=== PATIENT | male | born 1955 | race Caucasian/White ===

== ENCOUNTER 2016-10-16 09:20 | Emergency (ER) | payer OTHER ==
--- NOTE | 2016-10-16 10:04 | UC ---
Skin Complaint HPI - HPI Summary HPI Summary: 61 yo male removed a nymph sized tick form right hand this am unsure how long it was on - History of Current Complaint Chief Complaint: UCSkin Time Seen by Provider: 10/16/16 09:38 Stated Complaint: TICK BITE Hx Obtained From: Patient Onset Severity: Mild Current Severity: None Pain Intensity: 0 Pain Scale Used: 0-10 Numeric Location: Hand (Right) Associated Signs & Symptoms: Positive: Nausea - Allergy/Home Medications Allergies/Adverse Reactions: Allergies Allergy/AdvReac Type Severity Reaction Status Date / Time No Known Allergies Allergy Verified 10/16/16 09:35 Home Medications: Home Medications Cyclosporine 0.05% OPHTH (NF) [Restasis 0.05% OPHTH] 1 drop BOTH EYES 10/16/16 [ History] Review of Systems Constitutional: Negative Skin: Negative Eyes: Negative ENT: Negative Respiratory: Negative Cardiovascular: Negative Gastrointestinal: Negative Genitourinary: Negative Motor: Negative Neurovascular: Negative Musculoskeletal: Negative Neurological: Negative Psychological: Negative All Other Systems Reviewed And Are Negative: Yes PMH/Surg Hx/FS Hx/Imm Hx Previously Healthy: Yes - Surgical History Surgical History: None - Social History Alcohol Use: None Substance Use Type: None Smoking Status (MU): Never Smoked Tobacco Physical Exam Triage Information Reviewed: Yes Appearance: Well-Appearing, No Pain Distress, Well-Nourished Vital Signs: Initial Vital Signs Temp 97.5 F 10/16/16 09:30 Pulse 66 10/16/16 09:30 Resp 18 10/16/16 09:30 BP 116/45 10/16/16 09:30 Pulse Ox 100 10/16/16 09:30 ENT: Positive: Hearing grossly normal. Negative: Nasal drainage Neck: Positive: Supple, Nontender Respiratory: Positive: Lungs clear, Normal breath sounds, No respiratory distress Cardiovascular: Positive: RRR, No Murmur Musculoskeletal: Positive: ROM Intact, No Edema Neurological: Positive: Alert Psychological Exam: Normal Skin Exam: Normal Course/Dx - Diagnoses Provider Diagnoses: tick bite. lyme disease prophylaxis Discharge - Discharge Plan Condition: Stable Disposition: HOME Prescriptions: DOXYcycline CAP(*) [DOXYcycline 100MG CAP(*)] 200 mg PO BID #2 cap Patient Education Materials: Tick Bite (ED) Additional Instructions: you have been prescribed a prophylactic dose of doxy this will protect you for this tick bite only recheck with your provider in 2-3 weeks
[2016-10-16 10:05] VITALS: BP 116/45
== END 2016-10-16 09:56 | disposition home or self-care (01) ==
LOC: UCEAST 09:20
DX: S60.561A Insect bite (nonvenomous) of right hand, initial encounter (principal); W57.XXXA Bitten or stung by nonvenomous insect and other nonvenomous arthropods, initial encounter
CPT/HCPCS: 99202; G0463

== ENCOUNTER 2016-12-28 12:16 | Emergency (ER) | payer SELFPAY ==
[2016-12-28 12:23] VITALS: BP 115/71
[2016-12-28] MEDS ORDERED: Ketorolac INJ* 30 MG/ML 1 ML VIAL IM ONE (12:43)
[2016-12-28] MEDS ORDERED: Ondansetron ODT TAB* 4 MG PO ONE (12:43)
--- NOTE | 2016-12-28 12:49 | UC ---
Back Pain HPI - HPI Summary HPI Summary: 61 yo male awoke about 2 AM with right back and flank pain associated with n/v and diaphoresis Hx Kidney stones - History of Current Complaint Chief Complaint: UCGU Stated Complaint: LOWER BACK PAIN NAUSEA Time Seen by Provider: 12/28/16 12:39 Hx Obtained From: Patient Onset/Duration: Sudden Onset Timing: Constant Severity Initially: Severe Severity Currently: Severe Pain Intensity: 8 Pain Scale Used: 0-10 Numeric Back Pain: Is Discrete @ - right CVA, Radiates To - right flank Character: Aching, Spasmodic Aggravating: Nothing Alleviating: Nothing - last to 400mg motrin at 8AM Associated Signs And Symptoms: Positive: Flank Pain Related History: Similar Episode Dx As - kidney stone - Allergies/Home Medications Allergies/Adverse Reactions: Allergies Allergy/AdvReac Type Severity Reaction Status Date / Time No Known Allergies Allergy Verified 12/28/16 12:23 PMH/Surg Hx/FS Hx/Imm Hx Previously Healthy: Yes GI/ History: Kidney Stones - Surgical History Surgical History: None - Family History Known Family History: Positive: Hypertension - Social History Alcohol Use: None Substance Use Type: None Smoking Status (MU): Never Smoked Tobacco Review of Systems Constitutional: Negative Skin: Negative Eyes: Negative ENT: Negative Respiratory: Negative Cardiovascular: Negative Gastrointestinal: Vomiting, Nausea, Other - right flank pain Genitourinary: Negative Motor: Negative Neurovascular: Negative Musculoskeletal: Negative Neurological: Negative Psychological: Negative Is Patient Immunocompromised?: No All Other Systems Reviewed And Are Negative: Yes Physical Exam Triage Information Reviewed: Yes Appearance: Well-Appearing, No Pain Distress, Well-Nourished Vital Signs: Initial Vital Signs Temp 97.5 F 12/28/16 12:17 Pulse 58 12/28/16 12:17 Resp 18 12/28/16 12:17 BP 115/71 12/28/16 12:17 Pulse Ox 100 12/28/16 12:17 Vital Signs Reviewed: Yes Eyes: Positive: Conjunctiva Clear ENT: Positive: Hearing grossly normal, TMs normal. Negative: Nasal congestion, Nasal drainage, Trismus, Muffled/hoarse voice Neck: Positive: Supple, Nontender Respiratory: Positive: Lungs clear, Normal breath sounds, No respiratory distress Cardiovascular: Positive: RRR, No Murmur Abdomen Description: Positive: Nontender, No Organomegaly, Soft, CVA Tenderness (R). Negative: Bruit Bowel Sounds: Positive: Present Musculoskeletal: Positive: ROM Intact, No Edema Neurological: Positive: Alert Psychological Exam: Normal Skin Exam: Normal Diagnostics - Radiology No standard instances Xray Interpretation: Positive (See Comments) Radiology Interpretation Completed By: Radiologist Back Pain Course/Dx - Differential Dx/Diagnosis Provider Diagnoses: kidstone right UVJ Discharge - Discharge Plan Condition: Improved Disposition: HOME Prescriptions: HYDROcodone/ACETAMIN 5-325 MG* [[place] 5-325 TAB*] 1 tab PO Q4H PRN #15 tab MDD 6 PRN Reason: Pain Ondansetron ODT TAB* [Zofran 4 MG Odt TAB*] 4 mg PO Q6H PRN #12 tab.odt MDD 4 PRN Reason: Nausea Ondansetron TAB* [Zofran Tab*] 4 mg PO Q6H PRN #10 tab PRN Reason: Nausea Tamsulosin CAP* [Flomax CAP*] 0.4 mg PO BEDTIME #7 cap Patient Education Materials: Kidney Stones (ED) Referrals: Destin Wills MD [Primary Care Provider] - 1 Week Fransico Ashford MD [Medical Doctor] - As Soon As Possible Additional Instructions: you have a 6mm stone Most stones this size will pass TO ER FOR INCREASED PAIN/PERSISTENT VOMITING/FEVER you can take advil THE RADIOLOGIST noted an enlarged prostate as well as an enlargement of the left seminal vesical HE has suggested you see a urologist for this You also have dense area (sclerotic lesion) in the right pelvic bone you may need a bone scan for this
--- NOTE | 2016-12-28 13:23 | RAD ---
INDICATION: Sudden onset RIGHT flank pain and hematuria. COMPARISON: No relevant prior exams available on the [facility] PACS for comparison. TECHNIQUE: Multidetector CT images were obtained from the lung bases to the ischial tuberosities. Evaluation of the viscera is limited without IV contrast. Multiplanar reformation. REPORT: Images through the inferior thorax demonstrate elevated lung volumes. Unremarkable unenhanced liver, gallbladder, pancreas, spleen. Negative for CT abnormality of the unopacified upper GI, small bowel, appendix visualized along the RIGHT pelvic sidewall, colon. Moderate stool present in the colon. Negative for ascites, free air, hernias. Normal adrenal glands. Moderate RIGHT hydroureteronephrosis is traced to a 0.6 cm stone at the ureterovesicular junction. No additional urolithiasis evident. Aside from the RIGHT UVJ stone the largely decompressed urinary bladder is unremarkable. Bilateral pelvic phleboliths noted. Asymmetric enlargement of the LEFT seminal vesicle. Prostatomegaly. Vasectomy clips noted. Negative for lymphadenopathy. Normal diameter abdominal aorta and iliac arteries. Physiologic distention of the IVC. Markedly sclerotic 2.1 cm lesion with irregular margins at the RIGHT iliac bone adjacent to the sacroiliac joint. Polyarticular degenerative arthropathy. Bilateral L5 spondylolysis with associated grade 2 anterolisthesis. Advanced L5-S1 degenerative spondylosis. IMPRESSION: 1. Moderate RIGHT hydroureteronephrosis is traced to a 0.6 cm stone at the ureterovesicular junction. 2. Asymmetric enlargement of the LEFT seminal vesicle as well as prostatomegaly. While nonspecific presence of prostate cancer with local extension is not excluded. Nonemergent urology consultation suggested. 3. Negative for lymphadenopathy. 4. 2.1 cm markedly sclerotic osseous lesion at the RIGHT iliac bone with irregular margins is nonspecific. The differential includes a tiny bone island as well as metastatic or primary bone tumors. Consider whole body nuclear medicine bone scan for further assessment.
== END 2016-12-28 14:07 | disposition home or self-care (01) ==
LOC: UCEAST 12:16
DX: N20.1 Calculus of ureter (principal); R11.2 Nausea with vomiting, unspecified; R61 Generalized hyperhidrosis; Z87.442 Personal history of urinary calculi
CPT/HCPCS: 74176; 81003; 99212; A9270-GY; G0463; J1885

== ENCOUNTER 2018-08-02 20:39 | Emergency (ER) | payer OTHER ==
--- NOTE | 2018-08-02 20:46 | UC ---
Skin Complaint HPI - HPI Summary HPI Summary: 63 yo male presents with tick bite to left chest. He tells me that he was outside a lot 3-4 days ago and thinks this is when he acquired the tick. First noticed it about an hour ago and removed it. Pt has the tick with him tonight. He has no symptoms, but is concerned about lyme disease. - History of Current Complaint Time Seen by Provider: 08/02/18 20:45 Stated Complaint: TICK BITE Hx Obtained From: Patient Onset/Duration: Sudden Onset Current Severity: None - Allergy/Home Medications Allergies/Adverse Reactions: Allergies Allergy/AdvReac Type Severity Reaction Status Date / Time No Known Allergies Allergy Verified 08/02/18 20:51 PMH/Surg Hx/FS Hx/Imm Hx - Additional Past Medical History Additional PMH: Dry eyes - Surgical History Surgical History: None - Family History Known Family History: Positive: Hypertension - Social History Occupation: Employed Full-time Lives: With Family Alcohol Use: None Substance Use Type: None Smoking Status (MU): Never Smoked Tobacco Review of Systems All Other Systems Reviewed And Are Negative: Yes Constitutional: Positive: Negative Skin: Positive: Other - Tick bite Respiratory: Positive: Negative Cardiovascular: Positive: Negative Neurovascular: Positive: Negative Neurological: Positive: Negative Psychological: Positive: Negative Physical Exam - Summary Physical Exam Summary: GENERAL: NAD. WDWN. No pain distress. SKIN: LEFT ANTERIOR CHEST WALL: there is a 7mm diameter of mild erythema and edema with central 1mm area of superficial skin loss. No streaking, bleeding, or drainage. NECK: Supple. Nontender. No lymphadenopathy. CHEST: No accessory muscle use. Breathing comfortably and in no distress. CV: Pulses intact. Cap refill <2seconds NEURO: Alert. PSYCH: Age appropriate behavior. Triage Information Reviewed: Yes Vital Signs: Vital Signs: Temp Pulse Resp BP Pulse Ox 98.6 F 65 18 107/68 100 08/02/18 20:47 08/02/18 20:47 08/02/18 20:47 08/02/18 20:47 08/02/18 20:47 Vital Signs Reviewed: Yes Course/Dx - Course Course Of Treatment: Pt has the tick with him this evening and tick does appear to be engorged. Given that the tick was possibly on pt for 72 hours or more - will treat with prophylactic anbx. He was given doxycycline 200mg in the clinic this evening. - Diagnoses Provider Diagnosis: Tick bite Discharge - Sign-Out/Discharge Documenting (check all that apply): Patient Departure All imaging exams completed and their final reports reviewed: No Studies - Discharge Plan Condition: Stable Disposition: HOME Patient Education Materials: Tick Bite (ED) Referrals: Destin Wills MD [Primary Care Provider] - Additional Instructions: If you develop a fever, shortness of breath, chest pain, new or worsening symptoms - please call your PCP or go to the ED. TICK BITE: You have been bitten by a tick. Once the tick is removed, these "bites" usually cause no problems. Tick fever, tick paralysis, [place] Spotted fever, and Lyme disease are uncommon -- but you should mention this tick bite to your doctor if you develop unusual symptoms in the next several weeks. If you develop any of the following, please see your physician promptly: (1) Fever, chills, or generalized malaise associated with a headache. (2) A red round area at the site of the bite (or elsewhere) (3) Joint pain, joint swelling or generalized weakness. (4) Redness, swelling, or drainage at the site of the bite. - Billing Disposition and Condition Condition: STABLE Disposition: Home
[2018-08-02 20:51] VITALS: BP 107/68
[2018-08-02] MEDS ORDERED: DOXYcycline CAP(*) 100 MG PO ONE (21:08)
== END 2018-08-02 21:20 | disposition home or self-care (01) ==
LOC: UCEAST 20:39
DX: S20.362A Insect bite (nonvenomous) of left front wall of thorax, initial encounter (principal); W57.XXXA Bitten or stung by nonvenomous insect and other nonvenomous arthropods, initial encounter; Y92.9 Unspecified place or not applicable
CPT/HCPCS: 99212; A9270-GY; G0463